=== PATIENT | female | born 1985 | race Caucasian/White ===

== ENCOUNTER → 2021-12-09 | Outpatient (CLI) | payer OTHER ==
[~2021-12-09] MED LIST: ATIVAN0.5 MG PO; BACTRIM DS TAB1 EACH PO; PREDNISONE 20 M20 MG PO; ZOFRAN ODT 4 MG4 MG SL
== END ==
LOC: KOH-I 10:38
DX: R07.89 Other chest pain (principal)
CPT/HCPCS: 71046